=== PATIENT | female | born 1960 | race Caucasian/White ===

== ENCOUNTER → 2021-09-29 | Outpatient (CLI) | payer OTHER | LOC: HYPER 08:04 | PROVIDERS: ATTEND Emergency Medicine Emergency Medical Services | DX: L97.512 Non-pressure chronic ulcer of other part of right foot with fat layer exposed (principal); M06.09 Rheumatoid arthritis without rheumatoid factor, multiple sites; G60.3 Idiopathic progressive neuropathy; E78.5 Hyperlipidemia, unspecified; L40.9 Psoriasis, unspecified; I10 Essential (primary) hypertension; M51.36 Other intervertebral disc degeneration, lumbar region; G47.30 Sleep apnea, unspecified; E66.9 Obesity, unspecified; F41.9 Anxiety disorder, unspecified; F31.9 Bipolar disorder, unspecified; Z87.891 Personal history of nicotine dependence; Z79.899 Other long term (current) drug therapy; Z98.890 Other specified postprocedural states; Z90.49 Acquired absence of other specified parts of digestive tract ==

== ENCOUNTER → 2021-10-06 | Outpatient (CLI) | payer OTHER | LOC: HYPER 08:20 | PROVIDERS: ATTEND Emergency Medicine Emergency Medical Services | DX: L97.512 Non-pressure chronic ulcer of other part of right foot with fat layer exposed (principal); L97.411 Non-pressure chronic ulcer of right heel and midfoot limited to breakdown of skin; M06.09 Rheumatoid arthritis without rheumatoid factor, multiple sites; E78.5 Hyperlipidemia, unspecified; L40.9 Psoriasis, unspecified; I10 Essential (primary) hypertension; M51.36 Other intervertebral disc degeneration, lumbar region; E66.9 Obesity, unspecified; G60.3 Idiopathic progressive neuropathy; G47.30 Sleep apnea, unspecified; F31.9 Bipolar disorder, unspecified; F41.9 Anxiety disorder, unspecified; Z87.891 Personal history of nicotine dependence; Z79.899 Other long term (current) drug therapy ==

== ENCOUNTER → 2021-11-03 | Outpatient (CLI) | payer OTHER | LOC: HYPER 09:03 | PROVIDERS: ATTEND Emergency Medicine Emergency Medical Services | DX: L97.512 Non-pressure chronic ulcer of other part of right foot with fat layer exposed (principal); L40.9 Psoriasis, unspecified; E78.5 Hyperlipidemia, unspecified; E66.9 Obesity, unspecified; I10 Essential (primary) hypertension; G60.3 Idiopathic progressive neuropathy; G47.30 Sleep apnea, unspecified; M06.09 Rheumatoid arthritis without rheumatoid factor, multiple sites; M51.36 Other intervertebral disc degeneration, lumbar region; F31.9 Bipolar disorder, unspecified; F41.9 Anxiety disorder, unspecified; Z87.891 Personal history of nicotine dependence ==

== ENCOUNTER → 2021-12-22 | Outpatient (CLI) | payer OTHER | LOC: HYPER 08:35 | PROVIDERS: ATTEND Emergency Medicine Emergency Medical Services | DX: L97.512 Non-pressure chronic ulcer of other part of right foot with fat layer exposed (principal); G60.3 Idiopathic progressive neuropathy; M06.09 Rheumatoid arthritis without rheumatoid factor, multiple sites; E78.5 Hyperlipidemia, unspecified; I10 Essential (primary) hypertension; G47.30 Sleep apnea, unspecified; L40.9 Psoriasis, unspecified; E66.9 Obesity, unspecified; F41.9 Anxiety disorder, unspecified; F31.9 Bipolar disorder, unspecified; Z68.34 Body mass index [BMI] 34.0-34.9, adult; M51.36 Other intervertebral disc degeneration, lumbar region; Z87.891 Personal history of nicotine dependence; Z79.899 Other long term (current) drug therapy ==